=== PATIENT | female | born 1970 | race Caucasian/White ===

== ENCOUNTER 2018-06-02 12:41 | Observation (INO) | payer OTHER ==
[~2018-06-02] VITALS: Ht 162.6 cm; Wt 71.3 kg
[2018-06-02] MEDS ORDERED: SODIUM CHLORIDE 0.9% 1000ML 1,000 ML IV SCH (13:01)
[2018-06-02] MEDS ORDERED: HYDROCODONE/APAP 10MG-325MG TAB PO ONE (13:15)
[2018-06-02] MEDS ORDERED: ONDANSETRON HCL INJ 2 MG/ML VIAL IV PRN (13:15)
[2018-06-02 13:55] LABS: BASOPHILS # (AUTO) 0.1 (0.0-0.1); BASOPHILS % 0.6 % (0.0-1.0); EOSINOPHILS # (AUTO) 0.4 (0.0-0.4); EOSINOPHILS % 4.1 % (0.0-6.0); HEMATOCRIT 41.2 % (34.2-44.1); HEMOGLOBIN 13.6 g/dL (12.0-16.0); LYMPHOCYTES # (AUTO) 3.6 (1.0-3.2); MEAN CORPUSCULAR HEMOGLOBIN 30.4 pg (28-32); MEAN CORPUSCULAR VOLUME 92.2 fL (81-99); MONOCYTES # (AUTO) 0.7 (0.2-0.8); MONOCYTES % 6.2 % (4.4-11.3); NEUTROPHILS # (AUTO) 5.9 (2.1-6.9); NEUTROPHILS % 54.9 % (38.7-80.0); PLATELET COUNT 291 x10e3/uL (140-360); RED BLOOD COUNT 4.47 x10e6/uL (3.6-5.1); RED CELL DISTRIBUTION WIDTH 12.4 % (11.7-14.4)
[2018-06-02 14:01] LABS: COLOR,URINE YELLOW (YELLOW)
[2018-06-02 14:02] LABS: BILIRUBIN,URINE NEGATIVE (NEGATIVE); CLARITY,URINE SL CLOUDY (CLEAR); KETONES,URINE NEGATIVE (NEGATIVE); LEUKOCYTE ESTERASE ,URINE NEGATIVE (NEGATIVE); NITRITE,URINE NEGATIVE (NEGATIVE); PROTEIN,URINE DIPSTICK NEGATIVE (NEGATIVE); URINE UROBILINOGEN 0.2 mg/dL (0.2 - 1)
[2018-06-02 14:04] LABS: INR 0.85; PROTHROMBIN TIME 12.4 seconds (11.9-14.5)
[2018-06-02 14:05] LABS: PARTIAL THROMBOPLASTIN TIME 38.7 seconds (23.8-35.5)
[2018-06-02 14:08] LABS: BACTERIA,URINE MANY /HPF; EPITHELIAL CELLS,URINE MODERATE /LPF
[2018-06-02 14:19] LABS: ALANINE AMINOTRANSFERASE 17 IU/L (0-55); ALBUMIN 4.6 g/dL (3.5-5.0); ALBUMIN/GLOBULIN RATIO 1.2 (0.8-2.0); ALKALINE PHOSPHATASE 48 IU/L (40-150); ANION GAP 13.4 mmol/L (8-16); BLOOD UREA NITROGEN 12 mg/dL (7-26); BUN/CREATININE RATIO 14 (6-25); CALCIUM 10.2 mg/dL (8.4-10.2); CARBON DIOXIDE 28 mmol/L (22-29); CHLORIDE 103 mmol/L (98-107); CREATININE, SERUM 0.86 mg/dL (0.57-1.11); EST GLOMERULAR FILTRATION RATE > 60 ML/MIN (60-); GLUCOSE 75 mg/dL (74-118); POTASSIUM 3.4 mmol/L (3.5-5.1); SODIUM 141 mmol/L (136-145)
[2018-06-02] MEDS ORDERED: ACETAMINOPHEN 325 MG TAB PO PRN (15:45)
[2018-06-02] MEDS ORDERED: PIPER-TAZ 3.375 GM / NS 50ML IV SCH (15:45)
[2018-06-02] MEDS ORDERED: NICOTINE 21 MG/EA PATCH TOP PRN (15:45)
[2018-06-02 16:00] VITALS: BP 99/57
[2018-06-02] MEDS ORDERED: POTASSIUM CHLORIDE 20 MEQ TAB CR PO NR (16:00)
[2018-06-02 16:02] VITALS: BP 99/57
[2018-06-02] MEDS: PIPER-TAZ 3.375 GM 50 ML IV SCH ×2 (16:27→21:48)
[2018-06-02] MEDS: VANCOMYCIN 1GM/NS 250 ML 250 ML IV SCH (16:27)
[2018-06-02] MEDS: LACTOBACILLUS ACIDOPHILUS CAPSULE PO SCH (16:28)
--- NOTE | 2018-06-02 16:47 | Consultation ---
DATE OF CONSULTATION: June 02, 2018 REASON FOR CONSULTATION: Pain in the left arm. HISTORY OF PRESENT ILLNESS: This patient is a very pleasant 47-year-old female. She said at the end of March she had some pain in her left upper extremity. No trauma. She was diagnosed with cellulitis. She was given several courses of antibiotic. She had a CAT scan of her arm. The patient is telling me she took Bactrim and clindamycin without any improvement. She said there was redness originally, but then there was pain localized in the arm. She came here because she said the pain was unbearable. PAST MEDICAL HISTORY: She denies. ALLERGIES: NKA. SOCIAL HISTORY: She smokes 1 pack a day. REVIEW OF SYSTEMS HEENT: Negative. PULMONARY: Negative. CARDIAC: Negative. : Negative. SKIN: There are no other rashes. JOINTS: Negative. OTHER: All other systems within normal limits. PHYSICAL EXAMINATION GENERAL: She is currently alert and oriented, does not seem to be in acute distress. VITALS: Stable. Currently afebrile. HEENT: She does not appear icteric. NECK: Supple. CHEST: Clear. HEART: S1 and S2. No murmur. ABDOMEN: Soft. Bowel sounds present. EXTREMITIES: In the arm, there is tenderness. There is no erythema or edema at present time that I can see. IMPRESSION: Pain in the arm after what seems to be infection. Patient is concerned about some swelling in the arm. I would suggest to obtain a CAT scan of the arm. Obtain CBC, sed rate, C-reactive protein, blood culture. It could be RSD, sympathetic reflex dystrophy, after the infection. Will proceed with the above findings. Laboratory data: White count 10.6, hemoglobin 10.6. Sodium 141, potassium 3.4. Liver enzymes are within normal limits. Will follow with you. Job#: [id number]
[2018-06-02] MEDS ORDERED: ENOXAPARIN SOD INJ 40 MG/0.4 ML SYR SC SCH (17:00)
[2018-06-02] MEDS ORDERED: CLINDAMYCIN PHOS 900MG/ 50ML 50 ML IV SCH (18:00)
[2018-06-02] MEDS: HYDROCODONE/APAP 7.5MG-325MG 1 EA TAB PO PRN (18:04)
[2018-06-02 20:00] VITALS: BP 94/61
[2018-06-03] VITALS (8 sets, daily range): BP systolic 89–102; BP diastolic 47–61
--- NOTE | 2018-06-03 02:32 | Diagnostic Imaging Report ---
EXAM: CT FOREARM LEFT W DATE: 06/03/2018 12:55 AM INDICATION: Left arm swelling, pain ^R/O DEEP TISSUE INFECTION COMPARISON: None TECHNIQUE: Multidetector CT scanning of the left forearm was performed. Coronal and sagittal multiplanar reformations were obtained. CT low dose techniques were utilized, as applicable. IV Contrast: 100 ml Isovue 370/300 FINDINGS: MUSCULOSKELETAL: There is skin thickening and soft tissue edema predominantly within the subcutaneous fat of the dorsal forearm. No discrete drainable collection. No acute underlying bony abnormality or cortical destruction. IMPRESSION: Cellulitis without drainable abscess. Signed by: Dr Cora Cortés MD on 06/03/2018 2:28 AM
[2018-06-03] MEDS ORDERED: SODIUM CHLORIDE 0.9% 250ML 250 ML ONE (03:43)
[2018-06-03] MEDS: VANCOMYCIN 1GM/NS 250 ML 250 ML IV SCH ×2 (04:01→17:23)
[2018-06-03 05:59] LABS: BASOPHILS # (AUTO) 0.1 (0.0-0.1); BASOPHILS % 0.8 % (0.0-1.0); EOSINOPHILS # (AUTO) 0.5 (0.0-0.4); EOSINOPHILS % 6.8 % (0.0-6.0); HEMATOCRIT 33.4 % (34.2-44.1); LYMPHOCYTES # (AUTO) 3.3 (1.0-3.2); LYMPHOCYTES % 49.4 % (18.0-39.1); MEAN CORPUSCULAR HEMOGLOBIN 30.6 pg (28-32); MEAN CORPUSCULAR HGB CONC 32.9 g/dL (31-35); MONOCYTES # (AUTO) 0.5 (0.2-0.8); MONOCYTES % 7.8 % (4.4-11.3); NEUTROPHILS # (AUTO) 2.3 (2.1-6.9); PLATELET COUNT 215 x10e3/uL (140-360); RED BLOOD COUNT 3.59 x10e6/uL (3.6-5.1); RED CELL DISTRIBUTION WIDTH 12.5 % (11.7-14.4)
[2018-06-03] MEDS: PIPER-TAZ 3.375 GM 50 ML IV SCH ×3 (06:22→21:47)
[2018-06-03 06:26] LABS: ALANINE AMINOTRANSFERASE 11 IU/L (0-55); ALBUMIN 3.1 g/dL (3.5-5.0); ALBUMIN/GLOBULIN RATIO 1.2 (0.8-2.0); ALKALINE PHOSPHATASE 31 IU/L (40-150); ANION GAP 8.7 mmol/L (8-16); BLOOD UREA NITROGEN 9 mg/dL (7-26); BUN/CREATININE RATIO 12 (6-25); CALCIUM 8.6 mg/dL (8.4-10.2); CARBON DIOXIDE 26 mmol/L (22-29); CHLORIDE 111 mmol/L (98-107); CREATININE, SERUM 0.75 mg/dL (0.57-1.11); EST GLOMERULAR FILTRATION RATE > 60 ML/MIN (60-); GLUCOSE 90 mg/dL (74-118); POTASSIUM 4.7 mmol/L (3.5-5.1); SODIUM 141 mmol/L (136-145)
[2018-06-03] MEDS ORDERED: IOPAMIDOL 370 MG/ML 200 ML INFUS..BTL INJ ONE (07:04)
[2018-06-03] MEDS ORDERED: SODIUM CHLORIDE 0.9% 50ML 50 ML ONE (07:04)
[2018-06-03] MEDS: LACTOBACILLUS ACIDOPHILUS CAPSULE PO SCH ×2 (09:15→17:23)
[2018-06-03] MEDS: HYDROCODONE/APAP 7.5MG-325MG 1 EA TAB PO PRN ×3 (11:25→23:45)
--- NOTE | 2018-06-03 13:45 | Diagnostic Imaging Report ---
EXAM: XR CHEST 1 VIEW DATE: 06/03/2018 1:13 PM INDICATION: PICC line COMPARISON: None FINDINGS: Lines and Tubes: Right PICC tip overlying distal SVC. Heart and Mediastinum: No acute cardiomediastinal findings. Lungs and Pleura: Haziness overlying lung bases has the appearance of overlying breast tissue. Bones and Soft Tissues: No acute findings. IMPRESSION: 1. Right PICC. Signed by: Dr. Lexa Waite MD on 06/03/2018 1:42 PM
[2018-06-04 00:12] VITALS: BP 94/54
[2018-06-04] MEDS: VANCOMYCIN 1GM/NS 250 ML 250 ML IV SCH ×2 (03:45→14:55)
[2018-06-04 04:17] VITALS: BP 98/53
[2018-06-04] MEDS: PIPER-TAZ 3.375 GM 50 ML IV SCH (05:17)
[2018-06-04 08:20] VITALS: BP 95/51
[2018-06-04] MEDS: LACTOBACILLUS ACIDOPHILUS CAPSULE PO SCH (09:15)
[2018-06-04] MEDS ORDERED: CEFEPIME 1GM/NS 0.9% 50 ML 50 ML IV SCH (10:26)
[2018-06-04] MEDS ORDERED: CEFEPIME HCL 1 GM VIAL IV SCH (10:30)
--- NOTE | 2018-06-04 11:27 | Discharge Summary ---
PRIMARY CARE DOCTOR: Jozef Duncan MD FINAL DIAGNOSIS: Left forearm cellulitis, failed outpatient therapy. MEDIA CENTER ASSISTANT: Dr. Lewis, infectious disease. PROCEDURES/STUDIES PERFORMED 1. Peripherally inserted central catheter line placement. 2. Left forearm CT with intravenous contrast, which showed cellulitis without drainable abscess. HISTORY: Per [facility] HOSPITAL COURSE: Again, the patient has had this issue for a month now despite multiple regimens of oral antibiotics. On the surface, there is no apparent erythema. Therefore, a CT was done to rule out deep tissue infection, which was negative per CT. Dr. Lewis recommended home IV antibiotics with cefepime and vancomycin through his office for 2 weeks. The patient was seen and examined today. CONDITION ON DISCHARGE: Improved. DISCHARGE MEDICATIONS: Please see medication reconciliation form. MARTELL SOMMER M.D. Job#: [id number] cc:JOZEF DUNCAN MD
[2018-06-04 11:53] VITALS: BP 86/51
[2018-06-04] MEDS: HYDROCODONE/APAP 7.5MG-325MG 1 EA TAB PO PRN (12:10)
[2018-06-04 16:01] VITALS: BP 95/55
== END 2018-06-04 17:46 | disposition home or self-care (01) ==
LOC: ER 12:41 → ERHOLD 13:01 → IMCU 15:48
PROVIDERS: ADMIT Internal Medicine; ATTEND Internal Medicine
DX: L03.114 Cellulitis of left upper limb (principal); D64.9 Anemia, unspecified; F17.210 Nicotine dependence, cigarettes, uncomplicated
CPT/HCPCS: 36415 ×3; 36569; 71045; 73201; 80053 ×2; 80202; 81001; 81025; 83735; 85025 ×2; 85610; 85730; 86140; 87040; 87086; 99284; G0378 ×3; J0692; J1650; J2543 ×3; J3370 ×3; J7030; J7050; Q9967

== ENCOUNTER → 2019-05-12 | Outpatient (CLI) | payer BC ==
--- NOTE | 2019-05-12 11:27 | Diagnostic Imaging Report ---
EXAMINATION: CHEST 2 VIEWS INDICATION: Chest pain COMPARISON: None FINDINGS: LINES/TUBES:None LUNGS:The lungs are well-inflated. No focal consolidation or pulmonary edema. PLEURA:No pleural effusion or pneumothorax. MEDIASTINUM:The cardiomediastinal silhouette appears normal in size and shape. BONES/SOFT TISSUES:No acute osseous injury. ABDOMEN:No free air under the diaphragm. IMPRESSION: No focal pneumonia or pulmonary edema. Signed by: Reshma Holloway MD on 05/12/2019 11:24 AM
== END ==
LOC: RAD 10:51
PROVIDERS: ATTEND Family Medicine
DX: R07.89 Other chest pain (principal)
CPT/HCPCS: 71046

== ENCOUNTER → 2019-06-09 | Outpatient (CLI) | payer BC ==
--- NOTE | 2019-06-09 14:02 | Diagnostic Imaging Report ---
Examination: MRI SPINE CERVICAL WO CONTRAST History: Neck pain with right hand pain and numbness. Comparison studies: None Technique: Sagittal T1, T2 and IR, axial T2 and axial gradient echo intravenous contrast: None Findings: Alignment: Normal lordosis. No scoliosis. Cervicomedullary junction: No abnormalities. Patent foramen magnum. Soft tissues: No T2 hyperintense inflammatory changes. Spinal cord: Normal in size and signal from the foramen magnum through T1. Vertebrae: No fractures, infection or neoplasm. Degenerative changes: C1-C2 through C3-C4: No abnormalities. C4-C5: Small central disc protrusion. No foraminal or canal stenosis. C5-C6: Asymmetric to the left disc bulge with left central and subarticular disc protrusion causes moderate bilateral neural foraminal narrowing and mild canal stenosis. C6-C7: Diffuse disc osteophyte complex and bilateral uncovertebral arthropathy result in mild right and moderate left neural foraminal narrowing and mild canal stenosis. C7-T1: No abnormalities. IMPRESSION: 1. Degenerative changes at C4-C5 through C6-C7 with mild canal stenosis at C5-C6 and C6-C7. 2. Moderate bilateral neural foraminal narrowing at C5-C6 and moderate left foraminal narrowing at C6-C7. Signed by: Dr. Sunita Garcia M.D. on 06/09/2019 1:59 PM
--- NOTE | 2019-06-09 14:12 | Diagnostic Imaging Report ---
Examination: MRI SPINE THORACIC WO CONTRAST History: Right shoulder and arm pain Comparison studies: None Technique: Sagittal T1 and STIR; axial, sagittal and coronal T2 Intravenous contrast: None. Findings: Alignment: Normal kyphosis. No scoliosis. Thoracic cord: Normal in signal and morphology. The tip of the conus is at T12-L1. Soft tissues: No T2 hyperintense inflammatory changes. Paraspinal muscles: Preserved. No volume loss. Vertebrae: No compression fractures, infection or neoplasm. Degenerative changes: T5-T6: Small left central disc protrusion. No foraminal or canal stenosis. T7-T8: Small central disc protrusion. No foraminal or canal stenosis. T8-T9: Central, right central and foraminal disc protrusion causes mild right neural foraminal narrowing. No left foraminal or canal stenosis. T9-T10: Right foraminal disc protrusion with associated annular fissure causes mild right foraminal narrowing. No left foraminal or canal stenosis. IMPRESSION: Mild degenerative changes at T5-T6 and from T7-T8 through T9-T10 without canal or significant (not moderate or severe) foraminal stenosis. Signed by: Dr. Sunita Garcia M.D. on 06/09/2019 2:08 PM
== END ==
LOC: MRI 09:22
PROVIDERS: ATTEND Family Medicine
DX: M54.2 Cervicalgia (principal); M54.6 Pain in thoracic spine; M54.12 Radiculopathy, cervical region; M54.14 Radiculopathy, thoracic region
CPT/HCPCS: 72141; 72146